=== PATIENT | female | born 1960 | race Caucasian/White ===

== ENCOUNTER 2017-05-10 10:14 | Emergency (ER) | payer OTHER ==
[~2017-05-10] VITALS: Ht 160 cm; Wt 60.8 kg
[2017-05-10 10:20] VITALS: TEMP 36.5; Ht 160 cm; Wt 60.8 kg
--- NOTE | 2017-05-10 11:14 | DIAGNOSTIC IMAGING REPORT ---
L FOREARM 2 VIEWS ROUTINE, L ELBOW MIN 3 VIEWS ROUTINE, L WRIST MIN 3 VIEWS ROUTINE, L SHOULDER MIN 2 VIEWS ROUTINE HISTORY: 56 years-old Female same acute left upper extremity pain status post fall COMPARISON: None available TECHNIQUE: 4 views of the left wrist, 2 views of the left forearm, 3 views of the left elbow and 4 views of the left shoulder FINDINGS: WRIST: Mild radiocarpal and first carpometacarpal osteoarthritis. No acute fracture or subluxation. Soft tissues are unremarkable without opaque foreign body. FOREARM: No acute fracture or subluxation. Mild degenerative spurring about the medial and lateral epicondyles of the humerus. ELBOW: Mild spurring of the medial epicondyles with dystrophic appearing calcifications within the region of the common extensor or lateral collateral ligament measuring 7 mm. No large joint effusion, acute fracture or subluxation. SHOULDER: Mild degenerative changes of the glenohumeral and AC joints. No acute fracture or subluxation. No opaque foreign body. Atherosclerosis of the aorta incidentally noted. IMPRESSION: 1. No acute fracture or dislocation identified identified. 2. Mild degenerative changes as above. The above report was generated using voice recognition software. It may contain grammatical, syntax or spelling errors. Electronically signed by: Patrick Hobson M.D. 05/10/2017 11:13 AM Dictated Date/Time: 05/10/2017 11:08 AM
[2017-05-10] MEDS ORDERED: ACETAMINOPHEN 500 MG TAB PO STA (11:37)
[2017-05-10 12:13] VITALS: BP 116/61; PULSE 56; O2SAT 99
--- NOTE | 2017-05-11 15:51 | EMERGENCY ROOM VISIT NOTE ---
ED Visit Note First contact with patient: 10:31 Chief Complaint: I fell and hurt my left arm. History of Present Illness: Ms. Elena is a 56-year-old white female who ambulates into the ED accompanied by male friend complaining of left upper extremity pain. Patient reports approximately one hour before she arrived in the emergency department she was walking out to her car, slipped on ice and fell onto her left arm. She reports she felt the arm was slightly abducted and flexed at the elbow when she landed on the arm. She reports before the fall she was not experiencing any lightheadedness or dizziness, the time of the fall she did not strike her head and there was no loss of consciousness and since the injury she denies all signs of head injury. Currently she is complaining of left upper extremity pain. She reports the majority of her discomfort is over the superior aspect of the shoulder, over the clavicle and over the medial lateral aspect of the elbow. She describes all these pains as a throbbing and sharp sensation. She rates this discomfort 8 /10. The pain is nonradiating. The pain worsens with all movements of the shoulder and elbow. She has not identified any alleviating factors related to the pain. She reports taken ibuprofen prior to arrival at the hospital with no relief of her discomfort. Additionally she reports she is having pain in the mid forearm and over the wrist. She reports this is a mild pain is more of an achy sensation. She denies any associated neck pain, thoracic back pain, chest wall pain, arm weakness/numbness/tingling. Additionally she denies any previous significant injuries to the any of the joints or bones in the left upper extremity. Review of Systems: As noted above in history of present illness. 8 body systems were reviewed and found to be negative as noted above. Past Medical History: Patient denies. Current Medications: Patient denies. Allergies to Medications: Patient denies. Social History: Patient is not employed; she feels safe in her home environment ; she denies tobacco use. Physical Examination: Vital Signs: Date Time Temp Pulse Resp B/P (MAP) Pulse Ox O2 Delivery O2 Flow Rate FiO2 05/10/17 12:13 56 17 116/61 99 05/10/17 11:27 56 17 116/61 99 Room Air 05/10/17 10:20 36.5 66 20 143/83 98 Room Air GENERAL: 56-year-old female in mild to moderate distress due to pain, nontoxic- appearing, afebrile and hemodynamically stable. NEUROLOGICAL: Awake, alert and oriented to person, place and time. Answering questions appropriately and following commands. Normal gait. SKIN: Warm, dry and pink. No soft tissue trauma noted. HEENT: Atraumatic and normocephalic. BACK: No tenderness over the bony cervical and thoracic spine. Full range of motion of the cervical spine. THORAX: Lungs sounds are clear to auscultation and equal bilaterally with symmetrical chest wall. No wheezing, rales or rhonchi. No crepitus, tenderness , subcutaneous air or deformities noted. LEFT UPPER EXTREMITY: No gross bony deformity. No tenderness over the clavicle or acromioclavicular joint. Mild tenderness over the superior aspect of the humeral head and the anterior aspect of the humeral head. I do not appreciate any bony deformity or crepitus. No tenderness over the posterior aspect of the humeral head. Mid tenderness in the mid humerus without bony deformity or crepitus. Moderate tenderness over the medial and lateral epicondylar area of the distal humerus but no tenderness over the olecranon process. Once again I do not appreciate any bony deformity or crepitus. Mild tenderness in the mid forearm over the radius but not the ulna. No bony deformity or crepitus. Mild tenderness diffusely through the wrist without bony deformity or crepitus. No tenderness throughout the hands. Decreased range of motion in all movements of the shoulder and elbow due to pain. Full range of motion in pronation and supination of the forearm, flexion, extension and radial and ulnar deviation of the wrist and flexion and extension of all fingers. Throughout the hand the skin was warm and pink and capillary refill is brisk. Distal pulses are intact. Distal sensations to light touch was intact. ED Course: Patient is assessed as noted above. Patient's medication list was reviewed. A she was offered pain medication and accepted 1 g of acetaminophen by mouth for pain. Left Shoulder X-Rays: Were read by myself and the radiologist showing no acute fractures or dislocations. Radiologist does note mild degenerative changes of the glenohumeral and acromioclavicular joints and atherosclerosis of the aorta. Left Elbow X-Rays: Were read by myself and the radiologist shows no acute fractures or dislocations. Radiologist noted mild spurring of the medial epicondyles with dystrophic appearing calcifications within the region of the common extensor oral lateral collateral ligament. No joint effusion. Left Forearm X-Rays: Were read by myself and the radiologist showing no acute fractures or dislocations. Degenerative changes noted above under elbow was once again noted. Left Wrist X-Rays: Were read by myself and the radiologist showing no acute fractures or dislocations. Radiologist notes mild radiocarpal and first metacarpal phalangeal osteoarthritis. Patient was placed in an extended posterior elbow Ortho-Glass splint and a sling. Patient was educated about today's findings and instructed on her treatment plan ; she verbalized understanding and agreement with this plan. Clinical Impression: Left upper extremity pain. Status post fall. Disposition: Patient discharged home in stable condition accompanied by her ; prior to departure she was reassessed and subjectively reported she was feeling the same. Plan: Comfort measures were discussed with the patient including rest, ice, splint and sling use and alternating ibuprofen and acetaminophen every 3 hours. Patient is encouraged to follow-up with orthopedics if no better in 7-10 days. Patient was encouraged return the ED for worsening/uncontrolled pain, uncontrolled swelling, arm/hand weakness/numbness/tingling or any new/ concerning symptoms.
== END 2017-05-10 12:13 | disposition home or self-care (01) ==
LOC: C.EDB 10:16
DX: M79.622 Pain in left upper arm (principal); W00.9XXA Unspecified fall due to ice and snow, initial encounter